=== PATIENT | male | born 1995 | race Caucasian/White ===

== ENCOUNTER 2020-12-19 09:13 | Emergency (ER) | payer MEDICAID, SELFPAY ==
[2020-12-19 09:15] VITALS: BP 142/95; PULSE 80; RESP 16; TEMP 36.9; O2SAT 100; BMI 21.8
[2020-12-19 09:18] VITALS: O2SAT 100
--- NOTE | 2020-12-19 09:39 | EDS_ITS ---
HPI History of Present Illness Chief Complaint: Cold Sx Detail of Chief Complaint: Sore throat and cough x3 days Informant: patient Narrative Narrative: Patient presents to the emergency department complaint of a sore throat and cough x3 days. Cough is mostly nonproductive. Patient states that he has a history of tonsil stones and he has seen some exudates. Patient denies any exposures to strep or anybody with COVID-19. He is not immunized against COVID-19. Patient denies shortness of breath. Has some mild body aches and intermittent headaches. [facility] Medical History (Updated 12/19/20 @ 10:[address] Ramy Godinez, DO) Leukemia Leukemia in remission Home Medications NK 12/19/20 [History Last Taken Unknown] Allergy/AdvReac Type Severity Reaction Status Date / Time No Known Allergies Allergy Verified 12/19/20 09:14 Social History Smoking Status: Current every day smoker tobacco type: cigarettes ROS ROS ED Constitutional Constitutional ED: Reports systems reviewed and no addt'l complaints, except as documented; Denies body ache(s), change in weight, chills or fever(s) Eyes Eyes: Denies acute decrease in peripheral vision, change in vision, double vision or loss of vision ENT ENT ED: Reports none and sore throat; Denies ear pain, lip swelling, loss taste/smell, neck pain or otalgia Cardiovascular Cardiovascular: Reports none; Denies abdominal pain, chest pain with activity, leg edema, lightheadedness, palpitations, rapid heart rate or syncope Respiratory/Chest Respiratory/Chest: Reports none; Denies change in mental status, dry cough, dyspnea, hemoptysis, shortness of breath at rest or shortness of breath with exertion Gastrointestinal Gastrointestinal: Reports none; Denies abdominal pain, change in stool character, diarrhea, hematemesis, hematochezia, melena, rectal bleeding or vomiting Genitourinary Genitourinary ED: Reports none; Denies abdominal discomfort, anuria, dysuria, genital pain or polyuria Musculoskeletal Musculoskeletal: Reports none and myalgias; Denies arthralgias, back pain, difficulty walking, extremity pain or muscle weakness Integumentary Reports none; Denies abscess or rash Neurologic Neurologic: Reports none; Denies abnormal gait, confusion, focal weakness, frequent falls, headache(s), loss of vision, numbness, paresthesias, radicular pain, vertigo or weakness Psychiatric Psychiatric: Reports systems reviewed and no addt'l complaints, except as documented and none; Denies behavioral changes, confusion, difficulty concentrating, hallucinations, suicidal ideation, tactile hallucinations or visual hallucinations Endocrine Endocrinology: Denies none, cold intolerance, excessive sweating, fatigue or heat intolerance Hematologic/Lymphatic Hematologic/Lymphatic: Reports none; Denies anemia, easy bleeding or easy bruising Allergic/Immunologic Allergic/Immunologic ED: Denies as per HPI, none, lip swelling, mouth swelling, throat swelling, tongue swelling or hives EXAM Physical Exam Const Vital Signs: 12/19/20 09:15 12/19/20 09:18 Temperature 98.5 F Temperature Source Oral Pulse Rate 80 Respiratory Rate 16 Respiratory Effort Short of Breath Respiratory Depth Normal Respiratory Pattern Normal Blood Pressure 142/95 H Blood Pressure Mean 110 Pulse Ox 100 Oxygen Delivery Method Room Air Room Air Positive well nourished and well developed General Appearance ED: well developed and NAD HEENT Reports TM's clear and moist mucous membranes HEENT Narrative: Mild pharyngeal erythema. There are no exudates. Uvula is in the midline without trismus. Mild anterior lymphadenopathy noted. normocephalic and atraumatic; Negative for trauma or tenderness Tympanic Membrane ED: Yes TM's clear Eyes PERRL and EOMs intact bilaterally General Eye ED: Negative for pale conjunctiva or scleral icterus Neck no lymphadenopathy, supple and no JVD General: Negative for tenderness Chest Wall inspection of chest normal and palpation of chest normal Chest: Negative for tenderness Resp normal respiratory effort and clear to auscultation bilaterally Effort and Inspection: Negative for respiratory distress or pain with movement Auscultation: Negative for rhonchi, wheezes or diminished lung sounds Cardio regular rate, regular rhythm, S1 normal heart sound, S2 normal heart sound and no murmurs Peripheral Pulses: pulses 2+ throughout GI normal to inspection, nondistended, normoactive bowel sounds, soft to palpation, non-tender, non-distended and no masses Back/Spine no CVA tenderness and no thoracic nor lumbar tenderness Extremity normal to inspection General Extremety ED: Negative for edema General Extremity: Negative for edema Neuro oriented x3, CN's II-XII intact bilaterally, no sensory deficits noted and gait normal Sensorium / Orientation: awake, alert, oriented to person, oriented to place and oriented to time Motor Exam: strength 5/5 throughout and strength abnormal Psych mental status grossly normal Skin no rashes or lesions noted and no wounds MDM MDM MDM Narrative Medical decision making narrative: Rapid strep screen and rapid COVID-19 test were both negative. This point I suspect a viral URI. Patient advised on symptomatic treatment with ibuprofen and Tylenol and fluids. Patient to follow- up with his primary care physician within next 3 to 5 days. Patient to return if difficulty swallowing, increased difficulty breathing, or condition should worsen anyway. Lab Data Attestation: I reviewed the patient's lab results. Discharge Plan Triage Chief Complaint: Cold Sx ED Provider: Ramy Godinez Dx/Rx/DC Orders Clinical Impression: Viral URI Instructions: ED URI, Viral, No Abx (Adult) Prescriptions: No Action NK RF: 0 Primary Care Provider: Care Physician,No Primary Referrals: James Spence MD [STAFF PHYSICIAN] - 3-5 Days Care Physician,No Primary [Primary Care Provider] - Disposition Disposition: Home, Self Care
== END 2020-12-19 10:44 | disposition home or self-care (01) ==
PROVIDERS: Emergency Provider Emergency Medicine
DX: J06.9 Acute upper respiratory infection, unspecified (principal); F17.210 Nicotine dependence, cigarettes, uncomplicated
CPT/HCPCS: 87426; 87880; 99284

== ENCOUNTER 2021-03-30 12:49 | Outpatient (CLI) | payer MEDICAID, SELFPAY ==
[2021-03-30 13:13] LABS: Absolute Neutrophil Count 3.7 X10^3/uL (2.0-7.7); Basophil# 0.06 X10^3/uL; Eosinophils% 1.6 % (0-5); Hematocrit 45.1 % (40-54); Hemoglobin 15.7 g/dL (13.0-16.5); Lymphocyte % 28.8 % (19-41); Mean Corp Hgb Conc 34.8 g/dL (32-36); Mean Corpuscular Hgb 28.6 pg (27.0-32.0); Mean Corpuscular Volume 82.3 fL (80-94); Mean Platelet Vol. 11.7 fl (6.2-12.0); Monocyte# 0.54 X10^3/uL; Monocyte% 8.6 % (0-10); NRBC Flagged by Analyzer 0 % (0-5); Neutrophil # 3.73 X10^3/uL (2.7-7.7); Neutrophil % 59.7 % (47-70); Platelet Count 205 K/mm3 (150-450); RBC Distribution Width SD 36.4 fl (35.1-43.9); Red Blood Count 5.48 M/mm3 (4.6-6.2); White Blood Count 6.3 K/mm3 (4.4-11.0)
[2021-03-30 13:40] LABS: Vitamin B12 370 pg/mL (211-911); Vitamin D,25 Hydroxy 13.7 ng/mL
[2021-03-30 13:44] LABS: Hemoglobin A1c 5.1 % (3.8-5.6)
[2021-03-30 13:46] LABS: ALB/GLOB Ratio 1.2 RATIO (0.9-2.4); AST(SGOT) 17 U/L (15-37); Alanine Aminotransfer ALT/SGPT 24 U/L (16-61); Albumin, Serum 4.2 g/dL (3.2-5.0); Alkaline Phosphatase 77 U/L (45-117); Anion Gap 6 (5-15); BUN 16 mg/dL (7-18); BUN/Creat Ratio 18.1 RATIO (10-20); Calcium,Total 8.8 mg/dL (8.5-10.1); Chloride 104 mmol/L (98-107); Cholesterol 156 mg/dL (200); Creatinine, Serum 0.88 mg/dL (0.70-1.30); EST Glomerular Filtration Rate 113 mL/min (>60); Est Glom Filt Rate - Afr Amer 137 mL/min (>60); Globulin 3.5 g/dL (2.2-4.2); Glucose 85 mg/dL (74-106); High Density Lipoprotein 69 mg/dL; Potassium 3.8 mmol/L (3.5-5.1); Protein, Total 7.7 g/dL (6.4-8.2); Sodium Level 140 mmol/L (136-145); Thyroid Stim Hormone (TSH) 3.35 uIU/mL (0.358-3.74); Triglycerides 74 mg/dL; Very Low Density Lipoprotein 15 mg/dL (5-40)
== END 2021-03-30 23:59 | disposition home or self-care (01) ==
DX: R20.2 Paresthesia of skin (principal); Z83.3 Family history of diabetes mellitus
CPT/HCPCS: 36415; 80053; 80061; 82306; 82607; 83036; 84443; 85025

== ENCOUNTER 2021-04-13 13:38 | Outpatient (CLI) | payer MEDICAID, SELFPAY ==
--- NOTE | 2021-04-13 13:50 | RAD_ITS ---
STUDY: X-RAY - LUMBAR SPINE REASON FOR EXAM: Male, 25 years old. Dorsalgia, unspecified TECHNIQUE: 3 view(s) of the lumbar spine were obtained. COMPARISON: None FINDINGS: Normal lumbar lordosis. There is no substantial scoliosis. There is a normal alignment of the vertebrae. Normal vertebral bodies and endplates. Normal disc space heights. The soft tissue structures are unremarkable. RAD/Lumbar Spine 2 or 3 Views IMPRESSION: Normal x-ray examination of the lumbar spine. Electronically Signed: Shola Valadez MD at 15:19 EST ,
== END 2021-04-13 23:59 | disposition home or self-care (01) ==
LOC: RAD 13:40
PROVIDERS: Referring Provider Nurse Practitioner Adult Health; Visit Provider Nurse Practitioner Adult Health
DX: M54.9 Dorsalgia, unspecified (principal)
CPT/HCPCS: 72100

== ENCOUNTER 2021-04-25 11:26 | Emergency (ER) | payer MEDICAID, SELFPAY ==
[2021-04-25 11:27] VITALS: BP 132/76; PULSE 102; RESP 16; TEMP 35.8; O2SAT 96; BMI 23.6
--- NOTE | 2021-04-25 11:53 | EDS_ITS ---
HPI HPI - URI History of Present Illness Chief Complaint: Sore Throat Informant: patient Narrative Narrative: Patient presents with sore throat that started about 7 hours ago. He also has a slight runny nose nasal congestion. He states he has a little bit of cough from drainage but does not feel short of breath. He has no myalgias. He states his face felt warm but he did not have a fever. No GI symptoms. No known Covid exposure. He states other than the sore throat he actually feels fine. He would be at work if it was not for the sore throat. ROS ROS ED Constitutional Constitutional ED: Reports subjective; Denies fever(s) Eyes Eyes: Denies blurry vision, change in vision or diplopia ENT ENT ED: Reports rhinorrhea and sore throat; Denies ear pain Cardiovascular Cardiovascular: Denies chest pain or palpitations Respiratory/Chest Respiratory/Chest: Reports cough; Denies dyspnea or sputum Gastrointestinal Gastrointestinal: Denies abdominal pain, diarrhea, nausea or vomiting Genitourinary Genitourinary ED: Denies dysuria Musculoskeletal Musculoskeletal: Denies back pain, myalgias or neck pain Integumentary Denies rash Neurologic Neurologic: Denies headache(s) Psychiatric Psychiatric: Denies depression Endocrine Endocrinology: Denies polydipsia or polyuria Hematologic/Lymphatic Hematologic/Lymphatic: Denies easy bleeding or easy bruising Allergic/Immunologic Allergic/Immunologic ED: Denies urticaria PFSH PFSH Medical History Leukemia Leukemia in remission Home Medications NK 12/19/20 [History Last Taken Unknown] cholecalciferol (vitamin D3) 125 mcg PO QWEEK 04/25/21 [History Last Taken Unknown] cyanocobalamin (vitamin B-12) 1,000 mcg PO DAILY 04/25/21 [History Last Taken Unknown] Allergy/AdvReac Type Severity Reaction Status Date / Time No Known Allergies Allergy Verified 04/25/21 11:28 Social History Smoking Status: Current every day smoker tobacco type: cigarettes EXAM Physical Exam Const Vital Signs: 04/25/21 11:27 04/25/21 14:15 Temperature 96.5 F L Temperature Source Temporal Pulse Rate 102 H 83 Respiratory Rate 16 16 Blood Pressure 132/76 H 123/72 H Blood Pressure Mean 94 89 Pulse Ox 96 98 Oxygen Delivery Method Room Air Room Air Positive well nourished and well developed General Appearance ED: well developed and NAD; Negative for cyanotic or diaphoretic HEENT Reports TM's clear and moist mucous membranes HEENT Narrative: Patient has mild nasal congestion. He does have erythema of his throat but no asymmetry. There is no exudate. His voice is normal. Handle secretions well. No sign of dental tenderness. normocephalic and atraumatic Face and Sinus: Negative for facial tenderness External Ear: external ears normal Tympanic Membrane ED: Yes TM's clear Eyes PERRL and EOMs intact bilaterally Neck supple and no meningeal signs Neck Narrative: Slight shotty lymph nodes that are slightly tender. Equal on both sides. Resp normal respiratory effort Cardio Rate: regular rate Rhythm: regular rhythm GI non-tender Palpation: soft Back/Spine no CVA tenderness Extremity normal to inspection Neuro oriented x3 Sensorium / Orientation: alert Psych mental status grossly normal Skin Lesions: no lesions Rashes: no rashes MDM MDM MDM Narrative Medical decision making narrative: Patient is negative strep. Exam is most consistent with viral illness. He does not have constellation of symptoms that are fully typical of Covid. He request a work note. Symptomatic treatment is appropriate. We did discuss returning if he has high fevers, trouble swallowing, shortness of breath or other symptoms. Lab Data Attestation: I reviewed the patient's lab results. Discharge Plan Triage Chief Complaint: Sore Throat ED Provider: Carmelo Lott Dx/Rx/DC Orders Clinical Impression: Acute viral pharyngitis Instructions: ED Pharyngitis, Viral Prescriptions: No Action NK RF: 0 cyanocobalamin (vitamin B-12) 1,000 mcg tablet extended release 1,000 mcg PO DAILY RF: 0 cholecalciferol (vitamin D3) 1,250 mcg (50,000 unit) capsule 125 mcg PO QWEEK RF: 0 Stand Alone Forms: ED Work / School Excuse Primary Care Provider: [facility] Usha Josue Referrals: [facility] Usha Josue [Primary Care Provider] - 3-5 Days if not improving Disposition Disposition: Home, Self Care
[2021-04-25 14:15] VITALS: BP 123/72; PULSE 83; RESP 16; O2SAT 98
[2021-04-25 14:35] VITALS: RESP 14
== END 2021-04-25 14:36 | disposition home or self-care (01) ==
PROVIDERS: Emergency Provider Emergency Medicine; Visit Provider Emergency Medicine
DX: J02.8 Acute pharyngitis due to other specified organisms (principal); F17.210 Nicotine dependence, cigarettes, uncomplicated; Z79.899 Other long term (current) drug therapy
CPT/HCPCS: 87880; 99282

== ENCOUNTER 2021-05-28 07:57 | Outpatient (CLI) | payer MEDICAID, SELFPAY ==
--- NOTE | 2021-05-28 10:33 | NEURO ---
NCS and/or EMG Patient Report Ordering Doctor: Fabienne Lovett NP DATE OF SERVICE: 05/28/21 Indication: Persistent pain in the right thumb and dorsum of the right hand following wrist surgery in 2020. Intermittent pain in the right heel with weightbearing. Evaluate for peripheral nerve injury. Findings: Nerve conduction studies were performed in the right upper and lower extremities. The right median motor study recording the abductor pollicis brevis showed a normal amplitude, normal distal latency and normal conduction velocity. The right ulnar motor study recording the abductor digiti minimi showed a normal amplitude, normal distal latency and normal conduction velocity. No conduction block or focal slowing was present across the elbow. The right median sensory response recording digit two showed a normal amplitude, latency and conduction velocity. The right ulnar sensory response recording digit five showed a normal amplitude, latency and conduction velocity. The right radial sensory response recording over the extensor snuff box showed a normal amplitude, latency and conduction velocity. The right peroneal motor study recording the extensor digitorum brevis showed a normal amplitude, normal distal latency and normal conduction velocity. No conduction block or focal slowing was present across the fibular neck. The right tibial motor study recording the abductor hallucis brevis showed a normal amplitude, normal distal latency and normal conduction velocity. Right sural sensory response showed a normal amplitude and conduction velocity. Right superficial peroneal sensory response showed a normal amplitude and conduction velocity. Right medial plantar sensory response showed a normal amplitude and conduction velocity. Right lateral plantar sensory response showed a normal amplitude and conduction velocity. Needle EMG of the right upper and lower extremity muscles, including paraspinals, was performed. No denervation was present in any muscle. Motor unit morphology, activation, and recruitment patterns were normal. Impression: This is a normal study. There is no electrophysiologic evidence of peripheral neuropathy. In addition, there was no electrophysiologic evidence of cervical/lumbar radiculopathy or entrapment neuropathy in the examined limbs. Please note: the electrodiagnosis of radiculopathy is made on the basis of excluding peripheral nerve lesions on nerve conduction studies and the needle EMG demonstrating denervation and/or reinnervation in the distribution of one or more nerve roots (i.e., acute and/or chronic axonal loss). Thus, electrodiagnostic studies are insensitive in detecting radiculopathy in the absence of axonal loss (e.g., in the setting of compression resulting in intermittent ischemia or mechanical deformation; or demyelination without axonal loss). Thus, clinical correlation is required in the interpretation of this negative electrodiagnostic study. William Ortega D.O. Multi Select Codes Neurology Neurology Interp Codes: 53540-87 Musc test done w/n test comp (interp) (Qty: 2) and 60234-20 Nr cnd test 11-12 studies (interp)
== END 2021-05-28 23:59 | disposition home or self-care (01) ==
LOC: PSN 07:57
PROVIDERS: Referring Provider Nurse Practitioner Adult Health; Visit Provider Nurse Practitioner Adult Health
DX: R20.2 Paresthesia of skin (principal); M79.609 Pain in unspecified limb
CPT/HCPCS: 95886; 95913

== ENCOUNTER 2022-03-23 16:26 | Emergency (ER) | payer MEDICAID, SELFPAY ==
[2022-03-23 16:28] VITALS: BP 125/87; PULSE 76; RESP 14; TEMP 36.2; O2SAT 96; BMI 26.6
[2022-03-23] MEDS: Mag Hydrox/Al Hydrox/Simeth 30 ML UDC PO (16:48)
[2022-03-23] MEDS: Ondansetron ODT 4 MG Tablet 8 MG PO (16:48)
--- NOTE | 2022-03-23 16:53 | RAD_ITS ---
EXAM: XR CHEST, 2 VIEWS CLINICAL INDICATION: chest pain, vomiting TECHNIQUE: Frontal and lateral views of the chest. This report was created using [employer] report generation technology. COMPARISON: None. FINDINGS: LUNGS AND PLEURAL SPACES: Unremarkable. No consolidation or edema. No pneumothorax. No effusion. HEART: Unremarkable. Cardiac silhouette not enlarged. MEDIASTINUM: Central airways and mediastinal contour are unremarkable. BONES/JOINTS: Unremarkable. SOFT TISSUES: Unremarkable. RAD/Chest PA and Lateral IMPRESSION: No radiographic evidence of acute cardiopulmonary disease. Electronically Signed: Stephen Keith MD at 17:12 EST ,
--- NOTE | 2022-03-23 17:19 | ED.VIS.GI ---
HPI HPI - GI History of Present Illness Chief Complaint: Nausea/Vomiting Informant: patient Abdominal Pain/Flank Pain Onset: Hours (couple) Timing: Continuous Quality: Burning Location: Epigastric (and up into lower half of chest) Current Severity: Moderate Maximum Severity: Severe Nausea/Vomiting/Emesis GI Symptom: Positive for Nausea and Vomiting Onset: Today Quality: Negative for Blood streaks or Hematemesis Severity: Severe Diarrhea/Melena/Hematochezia GI Symptom: Negative for Diarrhea, Melena or Hematochezia Associated Symptoms Associated Symptoms: Negative for Dysuria, Frequency or Hematuria Narrative Narrative: Patient states he was taking the one chip challenge on a [employer] video, which essentially entails buying a prepackaged tortilla chip that is blue/black and caked in extremely spicy pepper rub and is apparently the spiciest hottest chip in the world. The patient states that the challenge is that he is supposed to go 4 hours without vomiting after eating the chip. He states within an hour he was vomiting violently for a straight 10 minutes, despite drinking a bunch of milk, and this resulted in him having burning from his epigastrium up his chest that he is still having. He states this has all made him feel a little dyspneic as well although not as much now. He states when he vomited it was black and gooey. After talking to family member, he assumes that he was vomiting blood. He saw no red blood in his emesis. [facility] Medical History Leukemia Leukemia in remission Home Medications NK 12/19/20 [History Last Taken Unknown] cholecalciferol (vitamin D3) 1,250 mcg (50,000 unit) capsule 125 mcg PO QWEEK 04/25/21 [History Last Taken Unknown] cyanocobalamin (vitamin B-12) 1,000 mcg tablet,extended release 1,000 mcg PO DAILY 04/25/21 [History Last Taken Unknown] Allergy/AdvReac Type Severity Reaction Status Date / Time No Known Allergies Allergy Verified 03/23/22 16:27 Social History Smoking Status: Current every day smoker tobacco type: cigarettes ROS ROS ED Constitutional Constitutional ED: Denies chills or fever(s) Eyes Eyes: Denies change in vision or diplopia ENT ENT ED: Denies rhinorrhea or sore throat Cardiovascular Cardiovascular: Reports chest pain; Denies palpitations Respiratory/Chest Respiratory/Chest: Reports other Details: transient dyspnea after retching/vomiting for 10min ; Denies cough Gastrointestinal Gastrointestinal: Reports abdominal pain, nausea and vomiting; Denies diarrhea Genitourinary Genitourinary ED: Denies dysuria or hematuria Musculoskeletal Musculoskeletal: Denies back pain or neck pain Integumentary Denies abscess or rash Neurologic Neurologic: Denies headache(s), paresthesias or weakness Psychiatric Psychiatric: Denies anxiety or suicidal thoughts EXAM Physical Exam Const Vital Signs: 03/23/22 16:28 Temperature 97.1 F L Temperature Source Temporal Pulse Rate 76 Respiratory Rate 14 Blood Pressure 125/87 H Blood Pressure Mean 99 Pulse Ox 96 Oxygen Delivery Method Room Air Positive well nourished and well developed General Appearance ED: well developed and NAD HEENT Reports moist mucous membranes normocephalic and atraumatic Eyes PERRL and EOMs intact bilaterally Neck full ROM and supple Resp normal respiratory effort and clear to auscultation bilaterally Cardio regular rate, regular rhythm and no murmurs Rate: Negative for tachycardic GI non-distended GI Narrative: Epigastric tenderness without guarding or rebound, no other areas of tenderness. Auscultation: normoactive bowel sounds Palpation: soft Back/Spine no CVA tenderness General Back: other FROM Extremity normal to inspection General Extremety ED: Negative for edema, pulses abnormal or tenderness General Extremity: Negative for edema or pulses abnormal Neuro oriented x3, CN's II-XII intact bilaterally and no sensory deficits noted Sensorium / Orientation: awake and alert Motor Exam: strength 5/5 throughout Skin no rashes or lesions noted and no wounds MDM MDM MDM Narrative Medical decision making narrative: 2 view chest x-ray was obtained in order to rule out free air under the diaphragm or pneumomediastinum as a result of the retching. It is normal on my interpretation. Radiology in agreement. I think patient is simply having mucosal discomfort of his upper GI tract due to eating something extremely spicy. Furthermore I do not think he was having any GI bleeding since he was simply vomiting up the black discoloration of the chip itself, but the patient showed me a video showing that the tortilla chip is blue and black and everyone's tongue was stained that color after eating it as well. He was reassured. Radiography Diagnostic Testing: Clinical Impression(s) from Imaging Studies Chest X-Ray 03/23/22 16:53 IMPRESSION: No radiographic evidence of acute cardiopulmonary disease. Electronically Signed: Stephen Keith MD at 17:12 EST , Discharge Plan Triage Chief Complaint: Nausea/Vomiting ED Provider: Bravo Blum Dx/Rx/DC Orders Clinical Impression: Acute gastritis without bleeding Instructions: ED Gastritis (Adult) Prescriptions: No Action NK cyanocobalamin (vitamin B-12) 1,000 mcg tablet extended release 1,000 mcg PO DAILY Label Comments: TAKE 1 TABLET EVERY DAY cholecalciferol (vitamin D3) 1,250 mcg (50,000 unit) capsule 125 mcg PO QWEEK Label Comments: TAKE 1 CAPSULE EVERY WEEK Primary Care Provider: [facility] Usha Josue Referrals: [facility] Usha Josue [Primary Care Provider] - As Needed Disposition Disposition: Home, Self Care
== END 2022-03-23 17:58 | disposition home or self-care (01) ==
PROVIDERS: Emergency Provider Emergency Medicine; Visit Provider Emergency Medicine
DX: K29.00 Acute gastritis without bleeding (principal); F17.210 Nicotine dependence, cigarettes, uncomplicated
CPT/HCPCS: 71046; 99283

== ENCOUNTER 2022-04-12 08:01 | Emergency (ER) | payer MEDICAID, SELFPAY ==
[2022-04-12 08:02] VITALS: BP 122/82; PULSE 68; RESP 18; TEMP 35.3; O2SAT 95; BMI 26.3
[2022-04-12 08:29] LABS: Bacteria 0 SEEN /hpf (None Seen); Color, Urine Yellow (Yellow); Glucose, Dipstick Normal (Normal); Ketone-Dipstick Negative (Negative); Leukocyte Esterase-Dipstick Negative /ul (Negative); Mucous, Urine 0 SEEN /hpf (<or=2+); Nitrite-Dipstick Negative (Negative); Occult Blood-Urine Negative /ul (Negative); Protein-Dipstick Negative (Negative); Red Blood Cells-Urine 0 SEEN /hpf (0-5); Squamous Epithelial Cells - UA 0 SEEN /hpf (0-5); Urine Bilirubin Dipstick Negative (Negative); Urine Clarity Clear (Clear); Urine Urobilinogen Normal (Normal); White Blood Cells 0 SEEN /hpf (0-5)
--- NOTE | 2022-04-12 08:55 | RAD_ITS ---
STUDY: X-RAY - LEFT KNEE REASON FOR EXAM: Male, 26 years old. Pain, hx of tumor TECHNIQUE: 3 view(s) of the knee. COMPARISON: None. FINDINGS: Normal visualized distal femur. Normal visualized proximal tibia and fibula. Normal proximal tibiofibular articulation. Normal medial femorotibial compartment. Normal lateral femorotibial compartment. Normal patellofemoral articulation. The soft tissue structures are unremarkable. RAD/Knee 3 Views IMPRESSION: Normal x-ray examination of the knee. Electronically Signed: Gulshan Garnica MD at 9:57 EST ,
--- NOTE | 2022-04-12 08:56 | CT_ITS ---
STUDY: CT ABDOMEN AND PELVIS WITH CONTRAST REASON FOR EXAM: Male, 26 years old. RLQ abd pain x 4 weeks RADIATION DOSAGE (If Supplied By Facility): CTDIvol = ( 11.72 ) mGy, DLP = ( 755.99 ) mGycm TECHNIQUE: Transaxial images were obtained from the dome of the diaphragm to the symphysis pubis without oral contrast. IV 100mL [id number]-300 was administered. Sagittal and coronal images were reconstructed. Individualized dose optimization techniques were used for this CT. COMPARISON: None. FINDINGS: The visualized lung bases are unremarkable. The visualized portions of the heart are within normal limits. Normal liver. Normal gallbladder and extrahepatic biliary system. Normal spleen. Normal pancreas. Normal bilateral adrenal glands. Normal right kidney. Normal left kidney. Normal visualized stomach. Normal small intestine. Normal colon. The appendix is visualized and appears normal. Normal abdominal aorta. Normal inferior vena cava. Normal retroperitoneum. Normal urinary bladder. Small benign-appearing bilateral inguinal lymph nodes. There is a small umbilical hernia containing fat. Straightening of the normal lumbar lordosis. CT/Abdomen/Pelvis W IV Cont ONLY IMPRESSION: No acute abnormality is seen. Electronically Signed: Gulshan Garnica MD at 9:39 EST ,
--- NOTE | 2022-04-12 08:58 | RAD_ITS ---
STUDY: X-RAY - RIGHT KNEE REASON FOR EXAM: Male, 26 years old. Pain, hx of tumor TECHNIQUE: 3 view(s) of the knee. COMPARISON: None. FINDINGS: Normal visualized distal femur. Normal visualized proximal tibia and fibula. Normal proximal tibiofibular articulation. Normal medial femorotibial compartment. Normal lateral femorotibial compartment. Normal patellofemoral articulation. The soft tissue structures are unremarkable. RAD/Knee 3 Views IMPRESSION: Normal x-ray examination of the knee. Electronically Signed: Gulshan Garnica MD at 9:58 EST ,
[2022-04-12] MEDS: 0.9% Normal Saline 1,000 ML 1000 ML IV (09:05)
[2022-04-12] MEDS: Ketorolac 15 MG/ML Vial IV (09:05)
[2022-04-12 09:20] LABS: Absolute Lymphocyte Count 2.18 X10^3/uL (0.83-4.51); Absolute Neutrophil Count 3.2 X10^3/uL (2.0-7.7); Basophil# 0.06 X10^3/uL; Basophil% 0.9 % (0-1); Hematocrit 48.1 % (40-54); Lymphocyte # 2.18 X10^3/ul (0.83-4.51); Lymphocyte % 32.5 % (19-41); Mean Corp Hgb Conc 33.3 g/dL (32-36); Mean Corpuscular Hgb 27.7 pg (27.0-32.0); Mean Corpuscular Volume 83.4 fL (80-94); Mean Platelet Vol. 12.6 fl (6.2-12.0); Monocyte# 0.84 X10^3/uL; Monocyte% 12.5 % (0-10); NRBC Flagged by Analyzer 0 % (0-5); Neutrophil % 47.7 % (47-70); Platelet Count 197 K/mm3 (150-450); RBC Distribution Width CV 12.3 % (11.6-14.6); RBC Distribution Width SD 37.3 fl (35.1-43.9); Red Blood Count 5.77 M/mm3 (4.6-6.2); White Blood Count 6.7 K/mm3 (4.4-11.0)
--- NOTE | 2022-04-12 09:30 | EX.ED.DYSGE1 ---
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 Patient states he has kidney pain. It started yesterday while at work around 4 PM. States it almost feels pulsating and radiates to the middle of his back. The past few days he had a pinching sensation in his bilateral testicles. He denies any hematuria but has had pressure with urination. Denies any penile discharge. Has not take anything for the pain. Denies a history of kidney stones. Notes he did have a lot of lumbar punctures as a child he does have some scar tissue and is not sure if that is related. He denies any fever. He does have chronic night sweats. Has had some weight gain but attributes that to his significant other being and eating more. No rash reported. Patient is also complaining of bilateral knee pain. His increased knee pain for the past 6 months. Patient states at 1 point he was told he had a tumor on his knees but then it went away. Patient moved here from [place] about a year ago and does not have a primary care doctor. He did have an appointment with [facility] but missed it has not been able to get back in. No other complaints at this time. [facility] Medical History Leukemia Leukemia in remission Home Medications back brace #1 ea 04/12/22 [Rx Last Taken Unknown] ibuprofen 600 mg tablet 600 mg PO Q6H PRN PRN pain #20 TABLETS 04/12/22 [Rx Last Taken Unknown] lidocaine 4 % topical patch (Salonpas (lidocaine)) 1 patch topical DAILY PRN pain #10 ea 04/12/22 [Rx Last Taken Unknown] Allergy/AdvReac Type Severity Reaction Status Date / Time No Known Allergies Allergy Verified 04/12/22 08:19 Social History Smoking Status: Current every day smoker tobacco type: cigarettes ROS ROS ED Constitutional Constitutional ED: Reports sweats; Denies chills or fever(s) Eyes Eyes: Denies change in vision ENT ENT ED: Denies sore throat Cardiovascular Cardiovascular: Denies chest pain Respiratory/Chest Respiratory/Chest: Denies cough Gastrointestinal Gastrointestinal: Reports abdominal pain; Denies diarrhea or nausea Musculoskeletal Musculoskeletal: Reports back pain and other Details: bilateral knee pain ; Denies arthralgias or myalgias Integumentary Denies rash Neurologic Neurologic: Denies headache(s) or weakness Psychiatric Psychiatric: Denies anxiety Hematologic/Lymphatic Hematologic/Lymphatic: Denies easy bleeding or easy bruising EXAM Physical Exam Const Vital Signs: 04/12/22 08:02 04/12/22 08:17 Temperature 95.6 F L Temperature Source Temporal Pulse Rate 68 Respiratory Rate 18 Respiratory Effort Normal Non-Labored Respiratory Pattern Normal Blood Pressure 122/82 H Blood Pressure Mean 95 Pulse Ox 95 Oxygen Delivery Method Room Air Positive well nourished and well developed General Appearance ED: well developed and NAD HEENT Reports moist mucous membranes Eyes PERRL and EOMs intact bilaterally Chest Wall inspection of chest normal and palpation of chest normal Resp normal respiratory effort and clear to auscultation bilaterally GI Auscultation: normoactive bowel sounds Palpation: soft and tender RLQ, Johnson's sign and Psoas sign; Negative for guarding Back/Spine no CVA tenderness Back/Spine Narrative: Mild lower lumbar tenderness palpation as well as left-sided lumbar muscle tenderness. Lumbar Spine / Lower Back: lumbar spinal tenderness Extremity normal to inspection Extremity Narrative: Mild tenderness palpation of the bilateral knees. No obvious effusion or abnormality on exam. Normal range of motion. Neuro oriented x3 Sensorium / Orientation: alert Motor Exam: general weakness Psych mental status grossly normal Skin no rashes or lesions noted and no wounds MDM MDM MDM Narrative Medical decision making narrative: Patient is evaluated for right lower back pain. It radiates slightly to the midline. He has remote history of lymphoblastic leukemia and does get night sweats. He also has a physical job where he does a lot of lifting. Differential includes muscle skeletal pain, renal colic, acute appendicitis, urinary tract infection and pathologic fracture. Patient is given IV fluids and Toradol with improvement of symptoms while in the emergency room. CBC, CMP and urinalysis largely normal. A CT abdomen pelvis is obtained as patient does have pain in the right lower quadrant on palpation in addition to his back pain. This does not show any acute process, no visualized bony abnormalities and the appendix is normal. 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 Bilateral knee x-rays interpreted by myself as well as radiology not show any acute process. On repeat evaluation patient was able to ambulate easily. He states he is feeling better. There is comment of straightening of the normal lumbar lordosis which could be consistent with muscular strain/spasm. Patient is not tried any [id number]-lzzrupy medicines and will be put on Lidoderm patches as well as Motrin for symptoms. He is given a work note through the weekend. He is given a prescription for a back brace is likely this to be beneficial as he does do lifting for work. He is given a referral to oncology just for routine follow-up as he does not currently have an oncologist and does have a history of leukemia. He is encouraged to continue to follow-up with primary care through the [facility]. Patient and significant other verbalized agreement understand this plan. Patient discharged home in stable condition. Lab Data Attestation: I reviewed the patient's lab results. Labs: Laboratory Results - last 24 hr 04/12/22 04/12/22 04/12/22 08:10 08:15 08:15 WBC 6.7 RBC 5.77 Hgb 16.0 Hct 48.1 MCV 83.4 MCH 27.7 MCHC 33.3 RDW Std Deviation 37.3 RDW Coeff of [place] 12.3 Plt Count 197 MPV 12.6 H Immature Gran % (Auto) 0.400 Neut % (Auto) 47.7 Lymph % (Auto) 32.5 [place] % (Auto) 12.5 H Eos % (Auto) 6.0 H Baso % (Auto) 0.9 Absolute Neuts (auto) 3.2 Absolute Lymphs (auto) 2.18 Nucleated RBC % 0 Sodium 140 Potassium 3.9 Chloride 107 Carbon Dioxide 27.0 Anion Gap 6 BUN 24 H Creatinine 0.89 Estim Creat Clear Calc 127.98 Est GFR (MDRD) Af Amer 135 Est GFR (MDRD) Non-Af 112 BUN/Creatinine Ratio 27.1 H Glucose 93 Calcium 9.0 Total Bilirubin 0.60 AST 40 H ALT 56 Alkaline Phosphatase 74 Total Protein 7.6 Albumin 3.9 Globulin 3.7 Albumin/Globulin Ratio 1.1 Urine Color Yellow Urine Clarity Clear Urine pH 6.0 Ur Specific [place] 1.020 Urine Protein Negative Urine Glucose (UA) Normal Urine Ketones Negative Urine Occult Blood Negative Urine Nitrite Negative Urine Bilirubin Negative Urine Urobilinogen Normal Ur Leukocyte Esterase Negative Urine RBC 0 SEEN Urine WBC 0 SEEN Ur Squamous Epith Cells 0 SEEN Urine Bacteria 0 SEEN Urine Mucus 0 SEEN Radiography Diagnostic Testing: Clinical Impression(s) from Imaging Studies Knee X-Ray 04/12/22 08:55 IMPRESSION: Normal x-ray examination of the knee. Electronically Signed: Gulshan Garnica MD at 9:57 EST , Abdomen/Pelvis CT 04/12/22 08:56 IMPRESSION: No acute abnormality is seen. Electronically Signed: Gulshan Garnica MD at 9:39 EST , Knee X-Ray 04/12/22 08:58 IMPRESSION: Normal x-ray examination of the knee. Electronically Signed: Gulshan Garnica MD at 9:58 EST , Discharge Plan Triage Chief Complaint: Flank Pain Other Complaint: Back ED Provider: Tori Rivas Dx/Rx/DC Orders Clinical Impression: Acute lumbar back pain, Bilateral knee pain Instructions: ED Back Care Tips, ED Back Pain (Acute or Chronic), ED Pain, Acute, Uncertain Cause Prescriptions: New ibuprofen 600 mg tablet 600 mg PO Q6H PRN PRN (Reason: pain) Qty: 20 0RF lidocaine [Salonpas (lidocaine)] 4 % adhesive patch,medicated 1 patch topical DAILY PRN (Reason: pain) Qty: 10 0RF Rx Instructions: may leave on for up to 12 hrs (DME) back brace Misc See Rx Instructions .Route Qty: 1 0RF Rx Instructions: As directed Stand Alone Forms: ED Work / School Excuse [facility]errals: Jeb Agudelo MD [Med Staff - Active Staff] - As Needed [facility] [Primary Care Provider] - Activity Restrictions/Additional Instructions: Alternate ibuprofen and Tylenol for pain. You may use [id number] Lidoderm patches which you have been given a prescription for. Try to avoid heavy lifting and use a back brace. Disposition Disposition: Home, Self Care
[2022-04-12 09:42] LABS: ALB/GLOB Ratio 1.1 RATIO (0.9-2.4); AST(SGOT) 40 U/L (15-37); Alanine Aminotransfer ALT/SGPT 56 U/L (16-61); Albumin, Serum 3.9 g/dL (3.2-5.0); Alkaline Phosphatase 74 U/L (45-117); Anion Gap 6 (5-15); BUN 24 mg/dL (7-18); BUN/Creat Ratio 27.1 RATIO (10-20); Chloride 107 mmol/L (98-107); Creatinine, Serum 0.89 mg/dL (0.70-1.30); EST Glomerular Filtration Rate 112 mL/min (>60); Est Glom Filt Rate - Afr Amer 135 mL/min (>60); Estimated Creatinine Clearance 127.98 ml/min; Globulin 3.7 g/dL (2.2-4.2); Glucose 93 mg/dL (74-106); Potassium 3.9 mmol/L (3.5-5.1); Protein, Total 7.6 g/dL (6.4-8.2); Sodium Level 140 mmol/L (136-145)
[2022-04-12 11:06] VITALS: BP 124/66; PULSE 73; RESP 15; O2SAT 97
== END 2022-04-12 11:07 | disposition home or self-care (01) ==
PROVIDERS: Emergency Provider Emergency Medicine; Visit Provider Emergency Medicine
DX: M54.50 Low back pain, unspecified (principal); M25.562 Pain in left knee; M25.561 Pain in right knee; F17.210 Nicotine dependence, cigarettes, uncomplicated
CPT/HCPCS: 73562; 74177; 80053; 81001; 85025; 96361; 96374; 99284; J7030; Q9967; A4216

== ENCOUNTER 2023-03-02 15:31 | Emergency (ER) | payer MEDICAID, SELFPAY ==
[2023-03-02 15:32] VITALS: BP 128/83; PULSE 70; RESP 16; TEMP 35.8; O2SAT 98; BMI 26.2
--- NOTE | 2023-03-02 15:43 | EDS_ITS ---
HPI <KRISH Mcdonough - Last Filed: 03/02/23 16:56> History of Present Illness Chief Complaint: Cold Sx Narrative Narrative: 27-year-old male has had 4 to 5 days of congestion and cough. No fever or chills. No chest pain, shortness of breath, or GI symptoms. His daughter has cold symptoms and tested positive for influenza A. He is here to make sure I do not have anything else because I work in the public. He has been taking Tylenol. PFSH <KRISH Mcdonough - Last Filed: 03/02/23 16:56> [facility] Medical History Leukemia Leukemia in remission Home Medications back brace #1 ea 04/12/22 [Rx Last Taken Unknown] guaifenesin 1,200 mg tablet, extended release 12 hr (Mucinex) 1,200 mg PO BID 7 days #14 tabs 03/02/23 [Rx Last Taken Unknown] Allergy/AdvReac Type Severity Reaction Status Date / Time No Known Allergies Allergy Verified 03/02/23 15:34 Social History (Updated 01/01/23 @ 17:37 by Jania Taveras) Smoking Status: Current every day smoker tobacco type: cigarettes alcohol intake: current alcohol intake frequency: a few times a month ROS <KRISH Mcdonough - Last Filed: 03/02/23 16:56> ROS ED ROS Narrative Constitutional: Negative for fever, chills, malaise. ENT: Positive for rhinorrhea. CVS: Negative for chest pain. Respiratory: Positive for cough. Negative for shortness of breath. GI: Negative for abdominal pain, nausea, vomiting, diarrhea. Neuro: Negative for headache. EXAM <KRISH Mcdonough - Last Filed: 03/02/23 16:56> Physical Exam Narrative Exam Narrative: CONST: Patient sitting in no acute distress. EYES: Normal inspection. ENT: Normal inspection, moist mucous membranes. Clear rhinorrhea, normal TMs. NECK: Normal inspection. No meningismus RESP: No respiratory distress, CTAB. CVS: Regular rate and rhythm, no murmur, no gallop. SKIN: Color normal, no rash, warm, dry, intact. EXTREMITIES: Normal appearance, no pedal edema. NEURO: Oriented x4. PSYCH: Normal affect. Const Vital Signs: 03/02/23 15:32 03/02/23 15:38 Temperature 96.5 F L Temperature Source Temporal Pulse Rate 70 Respiratory Rate 16 Respiratory Effort Normal Respiratory Pattern Normal Blood Pressure 128/83 H Blood Pressure Mean 98 Pulse Ox 98 Oxygen Delivery Method Room Air <Dr. Bravo Blum MD - Last Filed: 03/02/23 15:51> Physical Exam Const Vital Signs: 03/02/23 15:32 03/02/23 15:38 Temperature 96.5 F L Temperature Source Temporal Pulse Rate 70 Respiratory Rate 16 Respiratory Effort Normal Respiratory Pattern Normal Blood Pressure 128/83 H Blood Pressure Mean 98 Pulse Ox 98 Oxygen Delivery Method Room Air MDM <KRISH Mcdonough - Last Filed: 03/02/23 16:56> [facility] Narrative Medical decision making narrative: Patient has 4 to 5 days of URI symptoms. Had exposure to family member with influenza. He appears well and nontoxic and is afebrile with normal vital signs. On exam he has rhinorrhea, otherwise benign. I discussed he most likely has a viral URI and that testing is not indicated and offered symptom management and a work note but he insists on having a test. Swab is negative for COVID, influenza, and RSV. I prescribed Mucinex for his symptoms send discussed symptomatic care at home. He was discharged in stable condition. <Dr. Bravo Blum MD - Last Filed: 03/02/23 15:51> [facility] Treatment and Re-Evaluation Comments:: I have personally performed a face to face assessment of the patient and have reviewed the GWENDOLYN Note. I performed a substantive portion of the visit including all aspects of the following. My spear findings include: History is 4 days of cold symptoms including rhinorrhea, headache, cough, no fevers or dyspnea. Positive sick contacts with influenza. Patient states he wants to know what organism is infected with. He understands it is not going to change treatment. Exam is well-appearing in no distress. Coarse without stridor. Lungs clear, no tachycardia. No cervical lymphadenopathy. Posterior pharynx clear. Medical Decison Making patient basically demanding a swab. We advised that it is not indicated for him given his vital signs, exam, and basic overall good health. Other additions or changes: [None] Discharge Plan Triage Chief Complaint: Cold Sx ED Midlevel Provider: Sugey Harman ED Provider: Bravo Blum Dx/Rx/DC Orders Clinical Impression: Acute upper respiratory infection Instructions: ED URI, Viral, No Abx (Adult) Prescriptions: New guaifenesin [Mucinex] 1,200 mg tablet extended release 12hr 1,200 mg PO BID 7 Days Qty: 14 0RF No Action (DME) back brace Misc See Rx Instructions .Route Qty: 1 0RF Rx Instructions: As directed Primary Care Provider: [facility] Referrals: [facility] [Primary Care Provider] - Activity Restrictions/Additional Instructions: You have a viral cold. Take tylenol or motrin as needed for fever or pain and I sent mucinex to the pharmacy for congestion. Disposition Disposition: Home, Self Care
--- OUTSIDE RECORDS SUMMARY | 2023-03-02 16:08 | XMS RPT_ITS | CCD ---
Author Name Unknown Address [address] [place] [address] Organization [facility] Care Team Providers Care Marketing Operations Coordinator Name Role Phone Unavailable Primary Care Provider GHANSHYAM Orta Referring Unavailable FREDI NOGUEIRA Referring Unavailable Medications Current Medications Medication Drug Class(es) Dates Sig (Normalized) Sig (Original) predniSONE 10 mg oral tablet (1 source) Start: 04-20-2022 End: 05-02-2022 predniSONE (DELTASONE) 10 mg tablet Take 6 tabs for 3 days, then 4 tabs for 3 days, then 2 tabs for 3 days then 1 tab for 3 days with food. 39 tablet 0 04/20/2022 05/02/2022 Active Completed/Discontinued Medications Medication Drug Class(es) Dates Sig (Normalized) Sig (Original) cyclobenzaprine hydrochloride 10 mg oral tablet (4 sources) Muscle Relaxant Start: 04-20-2022 take 1 tablet by mouth every eight hours as needed cyclobenzaprine (FLEXERIL) 10 mg tablet Take 1 tablet by mouth three times daily as needed for muscle spasm. 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] Onset: 08-12-2022 08-06-2022 Episodic Other non-traumatic joint disorders (1 source) Shoulder pain; Translations: [Pain in left shoulder] Episodic Past or Other Problems Problem Classification Problem Date Documented Da te Episodic/Chronic Other non-traumatic joint disorders (1 source) Pain in left shoulder; Translations: [Acute pain of left shoulder] Onset: 04-20-2022 Episodic Results Test Name Value Interpretation Reference Range Facil ity Vital Signs Date Time Vital Sign Value Performing Clinician Faci lity 04-20-2022 09:31-0500 Body temperature 98.01 [degF] Fredi Nogueira FLAT LOCKER.DIE MECHANIC Work Phone: [facility] 04-20-2022 09:31-0500 Body weight 81.65 kg Fredi Nogueira FLAT LOCKER.DIE MECHANIC Work Phone: [facility] 04-20-2022 09:31-0500 Diastolic blood pressure 70 mm[Hg] Fredi Nogueira FLAT LOCKER.DIE MECHANIC Work Phone: [facility] 04-20-2022 09:31-0500 Heart rate 80 /min Fredi Nogueira FLAT LOCKER.DIE MECHANIC Work Phone: [facility] 04-20-2022 09:31-0500 Respiratory rate 16 /min Fredi Nogueira FLAT LOCKER.DIE MECHANIC Work Phone: [facility] 04-20-2022 09:31-0500 SaO2% (BldA) [Mass fraction] 98 % Frediraman Nogueira FLAT LOCKER.DIE MECHANIC Work Phone: [facility] 04-20-2022 09:31-0500 Systolic blood pressure 122 mm[Hg] Fredi Nogueira FLAT LOCKER.DIE MECHANIC Work Phone: [facility] Encounters Encounter Date Encounter Type Care Provider Facility Start: 08-12-2022 End: 08-13-2022 ambulatory GHANSHYAM MORALEZ Facility:[facility] Start: 08-06-2022 Chart abstracting Johanna Jordan [facility] Work Phone: [facility] Plan of Treatment Date Care Activity Detail Author Start: 10-18-2022 Influenza vaccination INFLUENZA (#1) [facility] Start: 02-17-2022 DEPRESSION ASSESSMENT DEPRESSION ASS ESSMENT [facility] Start: 10-18-2021 Influenza vaccination INFLUENZA (#1) [facility] Start: 2016 Urine microalbumin profile DTAP,TDAP ,TD (1 - Tdap) [facility] Start: 10-02-2015 HEPATITIS C SCREENING HEPATITIS C SC MUKUND [facility] Start: 10-02-2015 HIV SCREENING HIV SCREENING [facility] Start: 2013 MENINGOCOCCAL B: Con incident response engineer based on risk (1 of 2 - Patient Seeks Protection) MENINGOCOCCAL B: Consider based on risk (1 of 2 - Patient Seeks Protection) [facility] Start: 10-02-2011 PEDS TO ADULT TRANSI TION ANNUAL ASSESSMENT PEDS TO ADULT TRANSITION ANNUAL ASSESSMENT [facility] Start: 2009 PEDS TO ADULT TRANSI TION INITIAL DISCUSSION PEDS TO ADULT TRANSITION INITIAL DISCUSSION [facility] Start: 2008 HPV VACCINE (1 - Mal e 2-dose series) HPV VACCINE (1 - Male 2-dose series) [facility] Start: 10-02-2007 MENINGOCOCCAL B: Con incident response engineer based on risk (1 of 2 - Risk Bexsero 2-dose series) MENINGOCOCCAL B: Consider based on risk (1 of 2 - Risk Bexsero 2-dose series) [facility] Start: 2006 HPV VACCINE (1 - Mal e 2-dose series) HPV VACCINE (1 - Male 2-dose series) [facility] Start: 10-02-2003 PNEUMOCOCCAL (1 - PCV) PNEUMOCOCCAL (1 - PCV) [facility] Start: 04-03-1998 COVID-19 VACCINE (#1) COVID-19 VACCI NE (#1) [facility] Start: 1997 HEPATITIS B (1 of 3 - 3-dose series) HEPATITIS B (1 of 3 - 3-dose series) [facility] Payers Date Payer Category Payer Medicaid [place] [employer] [employer] [id number] 2022-Present [phone] [place] [id number] Medicaid [id number] 2022 Medicaid [id number] Social History Date Type Detail Facility Start: 04-20-2022 Tobacco smoking stat us NHIS Smokes tobacco daily [facility] Work Phone: Start: 04-20-2022 Tobacco use and exposure Smokeless tobacco non-user [facility] Work Phone: Start: 1995 Sex Assigned At Not on file [facility] Start: 04-20-2022 End: 06-07-2022 History of Social function [facility] Start: 04-20-2022 End: 06-07-2022 Tobacco use panel [facility] National Score (1-100), lower number is lower risk 81 [facility] Clinical Notes 04-20-2022 to 08-06-2022 Johanna Jordan LGC - 08/06/2022 4:14 PM Coco Mazariegos - 05/16/2022 11:10 AM Coco Mazariegos - 05/10/2022 10:36 AM EDTPatient Mark Nogueira APRN.DIE MECHANIC - 04/20/2022 10:23 AM EST Note Date & Type Note Facility 08-06-2022 Note HNO ID: [id number] Author: ARNOLD Newberry Service: ? Author Type: Genetic Counselor Type: Progress Notes Filed: 08/29/2022 5:20 PM Note Text: Met with Mr. Gay during a genetic counseling appointment for his , Janice Gay ( ). See her chart for further documentation. 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 He provided consent to receive results via Emulis and was encouraged to call with any questions/concerns/etc. Johanna Jordan CGC [facility] 08-06-2022 History of Present illness Narrative Met with Mr. Gay during a genetic counseling appointment for his , Janice Gay ( ). See her chart for further documentation. 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 He provided consent to receive results via Emulis and was encouraged to call with any questions/concerns/etc. Johanna Jordan CGC documented in this encounter [facility] 05-16-2022 Note Patient Outreach (RE FPHY) LEO GAY ([id number]) 1995 M Date Time Provider Department 05/16/22 NO PCP (HISTORICAL) REFPHY During your visit today, we recorded the following information about you: Melinda Mazariegos 05/16/2022 11:11 AM Signed POPULATION HEALTH NAVIGATION OUTREACH Action/FYI Patient scheduled Patient Identified by Name and : YES, via Emulis Outreach Outcome/Action Spoke to patient / parent / legal guardian: Patient scheduled Did you use a PCP flex slot to schedule this appointment? No Reason for Outreach Care Gap or Scheduling/Wellness visits Payer: Payor: [place] / Plan: [facility] MEDICAID / Product Type: Medicaid / Care Gap Reviewed:: ORQ Reminder: Reminder note to check Health Maintenance for items below Health Maintenance items due: HEPATITIS B(1 of 3 - 3-dose series) Never done COVID-19 VACCINE(1) Never done PNEUMOCOCCAL(1 - PCV) Never done MENINGOCOCCAL B: Consider based on risk(1 of 2 - Risk Bexsero 2-dose series) Never done HPV VACCINE(1 - Male 2-dose series) Never done HEPATITIS C SCREENING Never done HIV SCREENING Never done DTAP,TDAP,TD(1 - Tdap) Never done INFLUENZA(1) Never done DEPRESSION ASSESSMENT Never done Navigation Signature: Melinda Mazariegos May 16, 2022 11:10 AM Allergies As of Date: 05/16/2022 (No Known Allergies) Date Reviewed: 04/20/2022 Reviewed by: Dana Taylor - Fully Assessed Prescriptions as of 05/16/2022 - cyclobenzaprine (FLEXERIL) 10 mg tablet Take 1 tablet by mouth three times daily as needed for muscle spasm. Problem List As Of Date: 05/16/2022 (None) Encounter Status:Closed by MELINDA MAZARIEGOS on 05/16/22 [facility] 05-16-2022 Note HNO ID: [id number] Author: Melinda Mazariegos Service: ? Author Type: ? Type: Progress Notes Filed: 05/16/2022 11:11 AM Note Text: POPULATION HEALTH NAVIGATION OUTREACH Action/FYI Patient scheduled Patient Identified by Name and : YES, via Emulis Outreach Outcome/Action Spoke to patient / parent / legal guardian: Patient scheduled Did you use a PCP flex slot to schedule this appointment? No Reason for Outreach Care Gap or Scheduling/Wellness visits Payer: [facility]: [facility] / Plan: [facility] MEDICAID / Product Type: Medicaid / Care Gap Reviewed:: ORQ Reminder: Reminder note to check Health Maintenance for items below Health Maintenance items due: HEPATITIS B(1 of 3 - 3-dose series) Never done COVID-19 VACCINE(1) Never done PNEUMOCOCCAL(1 - PCV) Never done MENINGOCOCCAL B: Consider based on risk(1 of 2 - Risk Bexsero 2-dose series) Never done HPV VACCINE(1 - Male 2-dose series) Never done HEPATITIS C SCREENING Never done HIV SCREENING Never done DTAP,TDAP,TD(1 - Tdap) Never done INFLUENZA(1) Never done DEPRESSION ASSESSMENT Never done Navigation Signature: Melinda Mazariegos May 16, 2022 11:10 AM [facility] 05-16-2022 History of Present illness Narrative POPULATION HEALTH NAVIGATION OUTREACH Action/FYI Patient scheduled Patient Identified by Name and : YES, via Emulis Outreach Outcome/Action Spoke to patient / parent / legal guardian: Patient scheduled Did you use a PCP flex slot to schedule this appointment? No Reason for Outreach Care Gap or Scheduling/Wellness visits Payer: [facility] / Plan: [facility] MEDICAID / Product Type: Medicaid / Care Gap Reviewed:: ORQ Reminder: Reminder note to check Health Maintenance for items below Health Maintenance items due: HEPATITIS B(1 of 3 - 3-dose series) Never done COVID-19 VACCINE(1) Never done PNEUMOCOCCAL(1 - PCV) Never done MENINGOCOCCAL B: Consider based on risk(1 of 2 - Risk Bexsero 2-dose series) Never done HPV VACCINE(1 - Male 2-dose series) Never done HEPATITIS C SCREENING Never done HIV SCREENING Never done DTAP,TDAP,TD(1 - Tdap) Never done INFLUENZA(1) Never done DEPRESSION ASSESSMENT Never done Navigation Signature: Melinda Mazariegos May 16, 2022 11:10 AM documented in this encounter [facility] 05-10-2022 Note Patient Outreach (RE FPHY) LEO GAY ([id number]) 1995 M Date Time Provider Department 05/10/22 NO PCP (HISTORICAL) REFPHY During your visit today, we recorded the following information about you: Melinda Mazariegos 05/10/2022 10:36 AM Signed POPULATION HEALTH NAVIGATION OUTREACH Action/ESTEFANIAI RP Outreach: LVM for Patient to call back and schedule TYRONE Consult for Acute pain of left shoulder [M25.512]. [phone]. Any agent can assist. Patient Identified by Name and : YES, via Emulis Outreach Outcome/Action Unable to reach patient: Left message Did you use a PCP flex slot to schedule this appointment? No Reason for Outreach Care Gap or Scheduling/Wellness visits Payer: Pay[place]: [place] / Plan: [facility] MEDICAID / Product Type: Medicaid / Care Gap Reviewed:: ORQ Reminder: Reminder note to check Health Maintenance for items below Health Maintenance items due: HEPATITIS B(1 of 3 - 3-dose series) Never done COVID-19 VACCINE(1) Never done PNEUMOCOCCAL(1 - PCV) Never done MENINGOCOCCAL B: Consider based on risk(1 of 2 - Risk Bexsero 2-dose series) Never done HPV VACCINE(1 - Male 2-dose series) Never done HEPATITIS C SCREENING Never done HIV SCREENING Never done DTAP,TDAP,TD(1 - Tdap) Never done INFLUENZA(1) Never done DEPRESSION ASSESSMENT Never done Navigation Signature: Melinda Mazariegos May 10, 2022 10:36 AM Allergies As of Date: 05/10/2022 (No Known Allergies) Date Reviewed: 04/20/2022 Reviewed by: Dana Taylor - Fully Assessed Prescriptions as of 05/10/2022 - cyclobenzaprine (FLEXERIL) 10 mg tablet Take 1 tablet by mouth three times daily as needed for muscle spasm. Problem List As Of Date: 05/10/2022 (None) Encounter Status:Closed by MELINDA MAZARIEGOS on 05/10/22 [facility] 05-10-2022 Note HNO ID: [id number] Author: Melinda Mazariegos Service: ? Author Type: ? Type: Progress Notes Filed: 05/10/2022 10:36 AM Note Text: POPULATION HEALTH NAVIGATION OUTREACH Action/ RP Outreach: LVM for Patient to call back and schedule TYRONE Consult for Acute pain of left shoulder [M25.512]. [phone]. Any agent can assist. Patient Identified by Name and : YES, via Emulis Outreach Outcome/Action Unable to reach patient: Left message Did you use a PCP flex slot to schedule this appointment? No Reason for Outreach Care Gap or Scheduling/Wellness visits Payer: [facility]: [facility] / [facility] / Product Type: Medicaid / Care Gap Reviewed:: ORQ Reminder: Reminder note to check Health Maintenance for items below Health Maintenance items due: HEPATITIS B(1 of 3 - 3-dose series) Never done COVID-19 VACCINE(1) Never done PNEUMOCOCCAL(1 - PCV) Never done MENINGOCOCCAL B: Consider based on risk(1 of 2 - Risk Bexsero 2-dose series) Never done HPV VACCINE(1 - Male 2-dose series) Never done HEPATITIS C SCREENING Never done HIV SCREENING Never done DTAP,TDAP,TD(1 - Tdap) Never done INFLUENZA(1) Never done DEPRESSION ASSESSMENT Never done Navigation Signature: Melinda Mazariegos May 10, 2022 10:36 AM [facility] 05-10-2022 History of Present illness Narrative POPULATION HEALTH NAVIGATION OUTREACH Action/ RP Outreach: LVM for Patient to call back and schedule TYRONE Consult for Acute pain of left shoulder [M25.512]. [phone]. Any agent can assist. Patient Identified by Name and : YES, via Emulis Outreach Outcome/Action Unable to reach patient: Left message Did you use a PCP flex slot to schedule this appointment? No Reason for Outreach Care Gap or Scheduling/Wellness visits P[place]: [place] / Plan: [facility] MEDICAID / Product Type: Medicaid / Care Gap Reviewed:: ORQ Reminder: Reminder note to check Health Maintenance for items below Health Maintenance items due: HEPATITIS B(1 of 3 - 3-dose series) Never done COVID-19 VACCINE(1) Never done PNEUMOCOCCAL(1 - PCV) Never done MENINGOCOCCAL B: Consider based on risk(1 of 2 - Risk Bexsero 2-dose series) Never done HPV VACCINE(1 - Male 2-dose series) Never done HEPATITIS C SCREENING Never done HIV SCREENING Never done DTAP,TDAP,TD(1 - Tdap) Never done INFLUENZA(1) Never done DEPRESSION ASSESSMENT Never done Navigation Signature: Melinda Mazariegos May 10, 2022 10:36 AM documented in this encounter [facility] 04-20-2022 Note HNO ID: [id number] Author: RT Rianna(R) Service: Radiology Author Type: Technologist Type: Progress Notes Filed: 04/20/2022 10:38 AM Note Text: Radiology Service Progress Note PATIENT NAME: Leo Gay DATE OF SERVICE: April 20, 2022 TIME: 10:29 AM PATIENT IDENTITY VERIFICATION COMPLETED USING TWO (2) IDENTIFIERS: Name and Date of confirmed by patient verbally. FALL SCREENING: Has the patient had 2 falls in the last year or 1 fall with injury or currently using an Ambulatory Assistive Device (Walker, Cane, Wheelchair, Crutches, etc.)? No PATIENT GENDER DATA: Male PATIENT RELEVANT IMPLANT DATA REVIEWED: Yes RADIOLOGY DEPARTMENT: General X-ray: Exam(s) Completed: Upper Extremity X-Ray(s): Shoulder, AP / TRUE AP / AXILLARY left PERIPHERAL IV DATA: Not applicable SIGNED BY: RT Rianna(R) April 20, 2022 10:29 AM [facility] 04-20-2022 Note HNO ID: [id number] Author: Fredi Nogueira APRN.DIE MECHANIC Service: ? Author Type: Nurse Practitioner Type: Progress Notes Filed: 04/20/2022 11:04 AM Note Text: This note was created using [employer]. Subjective Leo Gay is a 26 year old male. 26 year old male with no PMH presents for left shoulder pain. Acute onset approximately 10 days ago. Left shoulder Denies trauma or injury Denies skin rash or lesions. +intermittent numbness + tingling Denies weakness. Denies CP. Denies SOB. Denies trauma or injury Right hand dominant. Works at [employer] in [place]. The history is provided by the patient. No master coastwise yacht was used. Shoulder Injury The incident occurred more than 1 week ago. The incident occurred at home. There was no injury mechanism. The left shoulder is affected. The pain is at a severity of 8/10. The pain is moderate. The pain has been Constant since onset. The pain Does not radiate. There is No history of shoulder injury. He has No other injuries. There is No history of shoulder surgery. Associated symptoms include numbness and tingling. Pertinent negatives include no muscle weakness. He reports no foreign bodies present. No past medical history on file. No past surgical history on file. ALLERGIES Patient has no known allergies. MEDICATIONS predniSONE (DELTASONE) 10 mg tablet Take 6 tabs for 3 days, then 4 tabs for 3 days, then 2 tabs for 3 days then 1 tab for 3 days with food. cyclobenzaprine (FLEXERIL) 10 mg tablet Take 1 tablet by mouth three times daily as needed for muscle spasm. No family history on file. Social History Tobacco Use Smoking status: Every Day Smokeless tobacco: Never Review of Systems Constitutional: Negative for activity change, appetite change, chills, diaphoresis, fatigue and fever. Eyes: Negative for pain, discharge, redness and itching. Respiratory: Negative for apnea, cough, choking and chest tightness. Cardiovascular: Negative for chest pain, palpitations and leg swelling. Gastrointestinal: Negative for abdominal pain, diarrhea, nausea and vomiting. Musculoskeletal: Left shoulder Skin: Negative for color change, pallor, rash and wound. Allergic/Immunologic: Negative for environmental allergies, food allergies and immunocompromised state. Neurological: Positive for tingling and numbness. Negative for dizziness, facial asymmetry, light-headedness and headaches. Hematological: Negative for adenopathy. Does not bruise/bleed easily. Psychiatric/Behavioral: Negative for agitation and behavioral problems. Objective BP 122/70 Pulse 80 Temp 36.7 ?C (98 ?F) Resp 16 Wt 81.6 kg (180 lb) SpO2 98% Physical Exam Vitals and nursing note reviewed. Constitutional: General: He is not in acute distress. Appearance: Normal appearance. He is not ill-appearing, toxic-appearing or diaphoretic. HENT: Head: Normocephalic and atraumatic. Right Ear: External ear normal. Left Ear: External ear normal. Nose: Nose normal. No congestion or rhinorrhea. Mouth/Throat: Mouth: Mucous membranes are moist. Pharynx: Oropharynx is clear. No oropharyngeal exudate or posterior oropharyngeal erythema. Eyes: General: Right eye: No discharge. Left eye: No discharge. Extraocular Movements: Extraocular movements intact. Conjunctiva/sclera: Conjunctivae normal. Pupils: Pupils are equal, round, and reactive to light. Cardiovascular: Rate and Rhythm: Normal rate and regular rhythm. Pulses: Normal pulses. Heart sounds: Normal heart sounds. No murmur heard. No friction rub. No gallop. Pulmonary: Effort: Pulmonary effort is normal. No respiratory distress. Breath sounds: Normal breath sounds. No stridor. No wheezing, rhonchi or rales. Chest: Chest wall: No tenderness. Abdominal: General: Abdomen is flat. There is no distension. Palpations: Abdomen is soft. There is no mass. Tenderness: There is no abdominal tenderness. There is no guarding or rebound. Hernia: No hernia is present. Musculoskeletal: General: No swelling, tenderness, deformity or signs of injury. Normal range of motion. Left shoulder: No swelling, deformity, effusion or laceration. Cervical back: Normal range of motion and neck supple. No rigidity or tenderness. Right lower leg: No edema. Left lower leg: No edema. Comments: Full ROM but with discomfort. Generalized TTP left anterior shoulder. No rash Skin intact 5/5 strength RP 2 + Lymphadenopathy: Cervical: No cervical adenopathy. Skin: General: Skin is warm and dry. Capillary Refill: Capillary refill takes less than 2 seconds. Coloration: Skin is not jaundiced or pale. Findings: No bruising, lesion or rash. Neurological: General: No focal deficit present. Mental Status: He is alert and oriented to person, place, and time. Cranial Nerves: No cranial nerve deficit. Sensory: No sensory deficit. Motor: No weakness. Coordination: Coordina (more content not included)... [facility] 04-20-2022 Instructions Fredi Nogueira APRN.[facility] - 04/20/2022 10:55 AM EST R.I.C.E. The general care of your injury includes the following: Resting, Icing, Compressing and Elevating the injured area. Remember this as RICE. REST: Limit the use of the injured body part. ICE: By applying ice to the affected area, swelling and pain can be reduced. Place some ice cubes in a re-sealable (Ziploc) bag and add some water. Put a thin washcloth between the bag and your skin. Apply the ice bag to the area for at least 20 minutes. Do this at least 4 times per day. Using the ice for longer times and more frequently is OK. NEVER APPLY ICE DIRECTLY TO THE SKIN. COMPRESS: Compression means to apply pressure around the injured area such as with a splint, cast or an adri bandage. Compression decreases swelling and improves comfort. Compression should be tight enough to relieve swelling but not so tight as to decrease circulation. Increasing pain, numbness, tingling, or change in skin color, are all signs of decreased circulation. ELEVATE: Elevate the injured part. For example, elevate your foot by placing it on a chair while sitting, or propping it up on pillows when lying down. documented in this encounter [facility] 04-20-2022 History of Present illness Narrative This note was created using [employer]. Subjective Leo Gay is a 26 year old male. 26 year old male with no PMH presents for left shoulder pain. Acute onset approximately 10 days ago. Left shoulder Denies trauma or injury Denies skin rash or lesions. +intermittent numbness + tingling Denies weakness. Denies CP. Denies SOB. Denies trauma or injury Right hand dominant. Works at [employer] in [place]. The history is provided by the patient. No master coastwise yacht was used. Shoulder Injury The incident occurred more than 1 week ago. The incident occurred at home. There was no injury mechanism. The left shoulder is affected. The pain is at a severity of 8/10. The pain is moderate. The pain has been Constant since onset. The pain Does not radiate. There is No history of shoulder injury. He has No other injuries. There is No history of shoulder surgery. Associated symptoms include numbness and tingling. Pertinent negatives include no muscle weakness. He reports no foreign bodies present. No past medical history on file. No past surgical history on file. ALLERGIES Patient has no known allergies. MEDICATIONS predniSONE (DELTASONE) 10 mg tablet Take 6 tabs for 3 days, then 4 tabs for 3 days, then 2 tabs for 3 days then 1 tab for 3 days with food. cyclobenzaprine (FLEXERIL) 10 mg tablet Take 1 tablet by mouth three times daily as needed for muscle spasm. No family history on file. Social History Tobacco Use Smoking status: Every Day Smokeless tobacco: Never Review of Systems Constitutional: Negative for activity change, appetite change, chills, diaphoresis, fatigue and fever. Eyes: Negative for pain, discharge, redness and itching. Respiratory: Negative for apnea, cough, choking and chest tightness. Cardiovascular: Negative for chest pain, palpitations and leg swelling. Gastrointestinal: Negative for abdominal pain, diarrhea, nausea and vomiting. Musculoskeletal: Left shoulder Skin: Negative for color change, pallor, rash and wound. Allergic/Immunologic: Negative for environmental allergies, food allergies and immunocompromised state. Neurological: Positive for tingling and numbness. Negative for dizziness, facial asymmetry, light-headedness and headaches. Hematological: Negative for adenopathy. Does not bruise/bleed easily. Psychiatric/Behavioral: Negative for agitation and behavioral problems. Objective BP 122/70 Pulse 80 Temp 36.7 C (98 F) Resp 16 Wt 81.6 kg (180 lb) SpO2 98% Physical Exam Vitals and nursing note reviewed. Constitutional: General: He is not in acute distress. Appearance: Normal appearance. He is not ill-appearing, toxic-appearing or diaphoretic. HENT: Head: Normocephalic and atraumatic. Right Ear: External ear normal. Left Ear: External ear normal. Nose: Nose normal. No congestion or rhinorrhea. Mouth/Throat: Mouth: Mucous membranes are moist. Pharynx: Oropharynx is clear. No oropharyngeal exudate or posterior oropharyngeal erythema. Eyes: General: Right eye: No discharge. Left eye: No discharge. Extraocular Movements: Extraocular movements intact. Conjunctiva/sclera: Conjunctivae normal. Pupils: Pupils are equal, round, and reactive to light. Cardiovascular: Rate and Rhythm: Normal rate and regular rhythm. Pulses: Normal pulses. Heart sounds: Normal heart sounds. No murmur heard. No friction rub. No gallop. Pulmonary: Effort: Pulmonary effort is normal. No respiratory distress. Breath sounds: Normal breath sounds. No stridor. No wheezing, rhonchi or rales. Chest: Chest wall: No tenderness. Abdominal: General: Abdomen is flat. There is no distension. Palpations: Abdomen is soft. There is no mass. Tenderness: There is no abdominal tenderness. There is no guarding or rebound. Hernia: No hernia is present. Musculoskeletal: General: No swelling, tenderness, deformity or signs of injury. Normal range of motion. Left shoulder: No swelling, deformity, effusion or laceration. Cervical back: Normal range of motion and neck supple. No rigidity or tenderness. Right lower leg: No edema. Left lower leg: No edema. Comments: Full ROM but with discomfort. Generalized TTP left anterior shoulder. No rash Skin intact 5/5 strength RP 2 + Lymphadenopathy: Cervical: No cervical adenopathy. Skin: General: Skin is warm and dry. Capillary Refill: Capillary refill takes less than 2 seconds. Coloration: Skin is not jaundiced or pale. Findings: No bruising, lesion or rash. Neurological: General: No focal deficit present. Mental Status: He is alert and oriented to person, place, and time. Cranial Nerves: No cranial nerve deficit. Sensory: No sensory deficit. Motor: No weakness. Coordination: Coordination normal. Gait: Gait normal. Deep Tendon Reflexes: Reflexes normal. Psychiatric: Mood and Affect: Mood normal. Behavior: Behavior normal. Thought Content: Thought content normal. Assessment and Plan ASSESSMENT/PLAN: 1. Acute pain of left shoulder - ICD9: 719.41, ICD10: M25.512 X 10 days No trauma or injury Left shoulder with no red flags - XR SHOULDER GENERAL 3V OR MORE AP/TRUE AP/OTHER LEFT-reveals degenerative changes, but negative for fractures. RICE RX Prednisone and Flexeril - CONSULT TO ORTHOPAEDICS as we discussed possible ligamentous injury Fredi Nogueira APRN.JANETT documented in this encounter [facility] Encounter for testing of male partner of female with recurrent loss- Primary documented in this encounter [facility] Reason for Referral Specialty Diagnoses / Procedures Referred By Contac t Referred To Contact Orthopedics Diagnoses Acute pain of left shoulder Procedures CONSULT TO ORTHOPAEDICS OFFICE/OUTPATIENT NEW HIGH MDM 60-74 MINUTES Fredi Nogueira APRN.[employer] [address] [place] [address] Referral ID Status Reason Start Date Expiration Date Visits Requested Visits Authorized [id number] Authorized PCP Requested Referral 04/20/2022 04/20/2023 1 1 Specialty Diagnoses / Procedures Referred By Contac t Referred To Contact XR IMAGING Diagnoses Acute pain of left shoulder Procedures XR SHOULDER GENERAL 3V OR MORE AP/TRUE AP/OTHER LEFT RADEX SHOULDER COMPLETE MINIMUM 2 VIEWS Fredi Nogueira APRN.[employer] [address] [place] [address] Xr Imaging Referral ID Status Reason Start Date Expiration Date V isits Requested Visits Authorized [id number] Closed Auto-Generate d Referral 04/20/2022 05/20/2023 1 1 Summary Purpose Family History No Family History Records Found Advance Directives No Advanced Directives Records Found Additional Source Comments Source Comments (unrecognize d section and content) In the event this informatio n is protected by the Federal Confidentiality of Alcohol and Drug Abuse Patient Records regulations: The Federal rules restrict any use of the information to criminally investigate or prosecute any alcohol or drug abuse patient.[facility] the event this information is protected by the Federal Confidentiality of Alcohol and Drug Abuse Patient Records regulations: The Federal rules restrict any use of the information to criminally investigate or prosecute any alcohol or drug abuse patient.[facility] the event this information is protected by the Federal Confidentiality of Alcohol and Drug Abuse Patient Records regulations: The Federal rules restrict any use of the information to criminally investigate or prosecute any alcohol or drug abuse patient.[facility] the event this information is protected by the Federal Confidentiality of Alcohol and Drug Abuse Patient Records regulations: The Federal rules restrict any use of the information to criminally investigate or prosecute any alcohol or drug abuse patient.[facility] Reason for Visit (unrecogniz ed section and content) Reason Comments Genetic Testing Orders (unrecognized sect ion and content) No Status Records Found INFORMATION SOURCE (unrecogn ized section and content) FOR RECORDS PERTAINING TO PATIENTS WHO ARE OR HAVE BEEN ENROLLED IN A CHEMICAL DEPENDENCY/SUBSTANCEABUSE PROGRAM, SOME INFORMATION MAY BE OMITTED. This clinical summary was aggregated from multiple sources. Caution should be exercised in using it in the provision of clinical care. This summary normalizes information from multiple sources, and as a consequence, information in this document may materially change the coding, format and clinical context of patient data. In addition, data may be omitted in some cases. CLINICAL DECISIONS SHOULD BE BASED ON THE PRIMARY CLINICAL RECORDS. [facility]. provides no warranty or guarantee of the accuracy or completeness of information in this document.
== END 2023-03-02 17:04 | disposition home or self-care (01) ==
PROVIDERS: Emergency Provider Emergency Medicine; Visit Provider Emergency Medicine
DX: J06.9 Acute upper respiratory infection, unspecified (principal); F17.210 Nicotine dependence, cigarettes, uncomplicated
CPT/HCPCS: 87631; 99282

== ENCOUNTER 2023-05-26 08:42 | Emergency (ER) | payer MEDICAID, SELFPAY ==
[2023-05-26 08:43] VITALS: BP 138/87; PULSE 115; RESP 18; TEMP 35.5; O2SAT 99; BMI 22.5
--- NOTE | 2023-05-26 08:48 | EDS_ITS ---
HPI History of Present Illness HPI Narrative: Patient presents with left ankle injury that occurred 3 days ago. Patient states he was skateboarding and he fell and inverted his left ankle. Patient states he heard some popping in his ankle. Patient states that the swelling has gotten progressively worse. Patient states he has noted some bruising yesterday. Patient states his pain is sharp. Patient states it is worse whenever he tries to twist and turn his ankle. Patient states it is better with rest. Patient denies any paresthesias or weakness. Patient denies any head injury or loss of consciousness. Patient denies any other injuries. Chief Complaint: Lower Extremity Injury Informant: patient Occured/Mechanism Mechanism/Context: Yes fall Onset/Context/Timing Onset: Days (3) Context: Sudden Onset Timing: Continuous Quality of Pain: Sharp Location: Left ankle Worsened by: Twisting Relieved by: Rest Associated Symptoms Associated Symptoms: Negative for Parasthesia, Weakness or Loss of Funtion PFSH PFS Medical History (Updated 05/26/23 @ 09:[address] James Massey DO) Leukemia Leukemia in remission Home Medications back brace #1 ea 04/12/22 [Rx Last Taken Unknown] guaifenesin 1,200 mg tablet, extended release 12 hr (Mucinex) 1,200 mg PO BID 7 days #14 tabs 03/02/23 [Rx Last Taken Unknown] Allergy/AdvReac Type Severity Reaction Status Date / Time No Known Allergies Allergy Verified 03/02/23 15:34 Surgical History (Updated 05/26/23 @ 08:[address] James Massey DO) S/P ORIF (open reduction internal fixation) fracture Social History Smoking Status: Current every day smoker tobacco type: cigarettes alcohol intake: current alcohol intake frequency: a few times a month ROS ROS ED Constitutional Constitutional ED: Reports chills and subjective; Denies fever(s) Eyes Eyes: Denies blurry vision or change in vision ENT ENT ED: Denies rhinorrhea or sore throat Cardiovascular Cardiovascular: Denies chest pain or palpitations Respiratory/Chest Respiratory/Chest: Denies cough or dyspnea Gastrointestinal Gastrointestinal: Denies nausea or vomiting Genitourinary Genitourinary ED: Denies dysuria or hematuria Musculoskeletal Musculoskeletal: Denies back pain or neck pain Integumentary Denies abscess or rash Neurologic Neurologic: Denies headache(s) or weakness Allergic/Immunologic Allergic/Immunologic ED: Denies mouth swelling or urticaria EXAM Physical Exam Const Vital Signs: 05/26/23 08:43 Temperature 96 F L Temperature Source Temporal Pulse Rate 115 H Respiratory Rate 18 Blood Pressure 138/87 H Blood Pressure Mean 104 Pulse Ox 99 Oxygen Delivery Method Room Air Positive well nourished and well developed General Appearance ED: well developed and NAD HEENT Reports moist mucous membranes Neck full ROM and supple Extremity full ROM Extremity Narrative: There is some tenderness, edema, and ecchymosis over the lateral malleolus. There is some mild tenderness over the medial malleolus. There is no bony crepitance or step-off. There is some ecchymosis over the lateral aspect of the left ankle. Range of motion was slightly limited in all motions of the left ankle secondary to pain. Pedal pulses are equal bilaterally. There is no tenderness over the proximal fibula. There is no tenderness over the fifth metatarsal. Sensation was intact to light touch in all digits. Strength is 5/5 bilaterally in the lower extremities. Neuro oriented x3, CN's II-XII intact bilaterally, moves all extremities and no sensory deficits noted Sensorium / Orientation: alert Motor Exam: strength 5/5 throughout Psych mental status grossly normal MDM MDM MDM Narrative Medical decision making narrative: Differential diagnosis includes fracture and sprain. X-rays of the left ankle will be obtained to assess for fracture. Radiography Diagnostic Testing: X-rays of the left ankle were obtained. There are 3 views. On my independent interpretation, there is no acute fracture. There is no dislocation. There is some mild soft tissue swelling. Radiologist also interpreted the x-rays and agrees. Discharge Plan Triage Chief Complaint: Lower Extremity Injury ED Provider: James Massey Dx/Rx/DC Orders Clinical Impression: Fall, Left ankle sprain Instructions: ED Ankle Sprain (Adult) Prescriptions: No Action (DME) back brace Misc See Rx Instructions .Route Qty: 1 0RF Rx Instructions: As directed guaifenesin [Mucinex] 1,200 mg tablet extended release 12hr 1,200 mg PO BID 7 Days Qty: 14 0RF Primary Care Provider: [facility] Usha Josue Referrals: [facility] Usha Josue [Primary Care Provider] - 5-7 Days Disposition Disposition: Home, Self Care
--- NOTE | 2023-05-26 09:01 | RAD_ITS ---
STUDY: X-RAY - LEFT ANKLE REASON FOR EXAM: Male, 27 years old. Injury. Pain. TECHNIQUE: 3 view(s) of the ankle. COMPARISON: None. FINDINGS: Normal visualized distal tibia and fibula. Normal medial and lateral malleoli. Normal tibiotalar articulation and ankle mortise. Small superior calcaneal spur. The visualized subtalar, talonavicular, calcaneocuboid and tarsal articulations are normal. Normal soft tissues. RAD/Ankle min 3 Views IMPRESSION: Small calcaneal spur with no other abnormality. Electronically Signed: Miguel Farmer MD at 9:33 EDT ,
[2023-05-26 10:03] VITALS: BP 135/69; PULSE 72; RESP 15; TEMP 36.7; O2SAT 100
== END 2023-05-26 10:04 | disposition home or self-care (01) ==
LOC: ED 09:18
PROVIDERS: Emergency Provider Emergency Medicine; Visit Provider Emergency Medicine
DX: S93.402A Sprain of unspecified ligament of left ankle, initial encounter (principal); F17.210 Nicotine dependence, cigarettes, uncomplicated; Y93.51 Activity, roller skating (inline) and skateboarding; W19.XXXA Unspecified fall, initial encounter
CPT/HCPCS: 73610; 99283

== ENCOUNTER 2023-06-14 14:25 | Emergency (ER) | payer MEDICAID, SELFPAY ==
[2023-06-14 14:26] VITALS: BP 129/76; PULSE 78; RESP 16; TEMP 36.6; O2SAT 98; BMI 23.1
--- NOTE | 2023-06-14 14:33 | EX.ED.UPPERE ---
HPI <LESLIE Woo - Last Filed: 06/14/23 14:59> History of Present Illness Chief Complaint: Upper Extremity Injury Narrative Narrative: Patient is a 27-year-old male with no significant medical history presents to the emergency department with complaints of right elbow pain. Patient states that he was riding a skateboard when he got clipped by a car door and injured his right elbow. He was on his way to work at [employer]. Patient states he had some numbness and tingling initially, he is here for x-rays. He denies any other injury. he did explain to me that he has difficulty lifting greater than 10 pounds. PFSH <LESLIE Woo - Last Filed: 06/14/23 14:59> [facility] Medical History (Updated 06/14/23 @ 14:[address] Bravo Blum MD) Leukemia Leukemia in remission Home Medications back brace #1 ea 04/12/22 [Rx Last Taken Unknown] guaifenesin 1,200 mg tablet, extended release 12 hr (Mucinex) 1,200 mg PO BID 7 days #14 tabs 03/02/23 [Rx Last Taken Unknown] Allergy/AdvReac Type Severity Reaction Status Date / Time No Known Allergies Allergy Verified 03/02/23 15:34 Surgical History S/P ORIF (open reduction internal fixation) fracture Social History Smoking Status: Current every day smoker tobacco type: cigarettes alcohol intake: current alcohol intake frequency: a few times a month ROS <LESLIE Woo - Last Filed: 06/14/23 14:59> ROS ED ROS Narrative Constitutional: Negative for fever, chills, weight loss, weakness Eyes: Negative for vision loss, vision change, double vision ENT: Negative for any sore throat, ear pain, congestion Cardiovascular: Negative for any chest pain, tightness, palpitations Respiratory: Negative for any cough, sputum production, hemoptysis, dyspnea, dyspnea on exertion, orthopnea Gastrointestinal: Negative for any abdominal pain, nausea, vomiting, diarrhea, constipation, blood in stool, blood in vomit : Negative for any urinary frequency, dysuria, retention, blood in urine Muscle skeletal: Negative for any neck pain, back pain. Positive right elbow pain Neurological: Negative for any headache, syncope, dizziness Skin: Negative for any rashes, itching, abrasions, lacerations Psychiatric: Negative for any depression, anxiety, stress, suicidal ideation, homicidal ideation Hematologic: Negative for any excessive bruising, easy bleeding EXAM <LESLIE Woo - Last Filed: 06/14/23 14:59> Physical Exam Narrative Exam Narrative: Vital signs reviewed. HEET: Head normocephalic atraumatic, TMs clear bilaterally. Posterior pharynx is clear, moist mucous membranes. Nares clear bilaterally. Neck: Supple with no lymphadenopathy or tenderness. No signs of meningismus. Cardiac: Regular rate and rhythm no murmurs gallops or rubs, equal peripheral pulses bilaterally. Respiratory: Lungs clear to auscultation bilaterally. No chest tenderness. Abdomen: Soft, nontender, nondistended. No abdominal bruit or pulsatile masses. No hepatosplenomegaly Extremities: No peripheral edema, no signs of gross trauma or deformity. Active full range of motion of all extremities. Patient does have slight discoloration, ecchymosis to the medial aspect of the right elbow. Patient able to flex and extend without difficulty. Neuro: Cranial nerves II through XII intact, no focal neurological deficits. Skin: Clean dry and intact with no rash, purpura, petechiae, vesicles or pustules. Backs/flank: No CVA tenderness, no midline spinal tenderness, no deformity. Psych: Normal mood and affect. No SI, HI or acute psychosis. Const Vital Signs: 06/14/23 14:26 Temperature 97.9 F Temperature Source Temporal Pulse Rate 78 Respiratory Rate 16 Blood Pressure 129/76 H Blood Pressure Mean 93 Pulse Ox 98 Oxygen Delivery Method Room Air Positive well nourished and well developed General Appearance ED: well developed MDM <LESLIE Woo - Last Filed: 06/14/23 14:59> MDM Treatment and Re-Evaluation Narrative: Differential diagnosis includes however is not limited to: Elbow strain, elbow contusion, elbow fracture Patient appears to be in no obvious respiratory distress, patient's vital signs are stable. Patient presents to the emergency department with complaints of right elbow pain after clipping it on a car door. Patient received x-rays of the right elbow. All radiologic examinations were read, reviewed by the emergency department attending. From these reads, a plan of care will be put in place. X-rays of the right elbow were obtained, they were negative for any acute fracture. At this time, patient be given a work note for today, he will continue take ibuprofen and Tylenol, ice and elevate at home. Instructed return for any worsening symptoms. All questions answered, patient stable for discharge. <Dr. Bravo Blum MD - Last Filed: 06/14/23 14:59> [facility] Narrative Medical decision making narrative: I have personally performed a face to face assessment of the patient and have reviewed the GWENDOLYN Note. I performed a substantive portion of the visit including all aspects of the following. My spear findings include: History is patient states that he was clipped by a vehicle side view mirror or something that he did not see while he was skateboarding on the side of the road, and he was not injured until this caused him to fall off of his skateboard onto right outstretched hand, he denies any wrist pain but he had pain in the medial aspect of the right elbow where he felt a pop. No numbness or tingling or weakness or other injury. Exam is full range of motion of the elbow including pronation supination without discomfort or limitation. Tender at the medial epicondyles and a little bit at the olecranon process. No swelling or deformity or signs of trauma. No tenderness at the radial head. Neurovascular intact distally no other areas of tenderness including wrist and hand. Medical Decison Making x-ray series right elbow 3 views on my interpretation negative for anything acute. There is normal-appearing anterior fat pad and no visible posterior fat pad. I think this is all normal. I doubt an occult fracture. Consistent with a minor sprain, he wants the day off of work and was given a note in addition to a dose of anti-inflammatories. Other additions or changes: [None] Discharge Plan Triage Chief Complaint: Upper Extremity Injury ED Midlevel Provider: Thang Choe ED Provider: Bravo Blum Dx/Rx/DC Orders Clinical Impression: Elbow sprain, Fall, Fall from skateboard, initial encounter, Sprain of right elbow Instructions: ED Sprain, Elbow Prescriptions: No Action (DME) back brace Misc See Rx Instructions .Route Qty: 1 0RF Rx Instructions: As directed guaifenesin [Mucinex] 1,200 mg tablet extended release 12hr 1,200 mg PO BID 7 Days Qty: 14 0RF Stand Alone Forms: ED Work / School Excuse Primary Care Provider: [facility] Usha Josue Referrals: [facility] Usha Josue [Primary Care Provider] - 10-14 Days if not better Activity Restrictions/Additional Instructions: Please follow-up outpatient Disposition Disposition: Home, Self Care
--- NOTE | 2023-06-14 14:45 | RAD_ITS ---
STUDY: X-RAY - RIGHT ELBOW REASON FOR EXAM: Male, 27 years old. Elbow pain TECHNIQUE: 3 view(s) of the elbow. COMPARISON: None. FINDINGS: Normal visualized humerus, radius and ulna. Normal radiocapitellar and ulnotrochlear articulations. The soft tissue structures are unremarkable. There is no demonstrated fracture. RAD/Elbow min 3 Views IMPRESSION: Normal x-ray examination of the elbow. Electronically Signed: Bravo Berkowitz MD at 14:59 EDT ,
[2023-06-14] MEDS: Ibuprofen 600 MG Tablet PO (15:07)
== END 2023-06-14 15:12 | disposition home or self-care (01) ==
PROVIDERS: Emergency Provider Emergency Medicine; Visit Provider Emergency Medicine
DX: S53.401A Unspecified sprain of right elbow, initial encounter (principal); F17.210 Nicotine dependence, cigarettes, uncomplicated; V00.131A Fall from skateboard, initial encounter
CPT/HCPCS: 73080; 99282